=== PATIENT | female | born 1945 | race Caucasian/White ===

== ENCOUNTER → 2017-08-13 | Outpatient (CLI) | payer MEDICARE, OTHER ==
[~2017-08-13] MED LIST: CALCIUM 500 +1 EAC2 PO; CHOL10002; CIPR500 PO; DILTIAZEM; SERT50 PO; SPIR50 PO
[2017-08-13 13:44] LABS: Adenovirus F 40/41 Not Detected (NOT DETECT); Astrovirus Not Detected (NOT DETECT); Campylobacter Sp Not Detected (NOT DETECT); Cryptosporidium Not Detected (NOT DETECT); Cyclospora Cayetanensis Not Detected (NOT DETECT); E. Coli O157 Not Detected (NOT DETECT); Entamoeba Histolytica Not Detected (NOT DETECT); Enteroaggregative E. coli-EAEC Not Detected (NOT DETECT); Enteropathogenic E. coli-EPEC Not Detected (NOT DETECT); Enterotoxigenic E. coli-ETEC Not Detected (NOT DETECT); Giardia Lamblia Not Detected (NOT DETECT); Norovirus GI/GII Not Detected (NOT DETECT); Plesiomonas Shigelloides Not Detected (NOT DETECT); Rotavirus A Not Detected (NOT DETECT); Salmonella Sp Not Detected (NOT DETECT); Shiga Toxin-prod E. coli-STEC Not Detected (NOT DETECT); Shigella/Enteroin E. coli-EIEC Not Detected (NOT DETECT); Vibrio Cholerae Not Detected (NOT DETECT); Vibrio Sp Not Detected (NOT DETECT); Yersinia Enterocolitica Not Detected (NOT DETECT)
[2017-08-13 13:45] LABS: Sapovirus Not Detected (NOT DETECT)
== END | disposition home or self-care (01) ==
LOC: LAB SHORT 13:00
DX: R19.7 Diarrhea, unspecified (principal)
CPT/HCPCS: 87507

== ENCOUNTER → 2018-11-15 | Outpatient (CLI) | payer MEDICARE, OTHER | END | disposition home or self-care (01) | LOC: LAB 18:45 → LAB EV 18:45 → LAB SHORT 18:45 | DX: R30.0 Dysuria (principal) | CPT/HCPCS: 87077; 87086; 87186 ==

== ENCOUNTER → 2018-11-30 | Outpatient (CLI) | payer MEDICARE, OTHER | END | disposition home or self-care (01) | LOC: LAB SHORT 11:57 → PLD 11:57 | DX: D22.5 Melanocytic nevi of trunk (principal); D22.71 Melanocytic nevi of right lower limb, including hip | CPT/HCPCS: 88305 ==

== ENCOUNTER 2019-07-22 13:52 | Emergency (ER) | payer MEDICARE, OTHER ==
[~2019-07-22] VITALS: Ht 160 cm; Wt 90.7 kg
[2019-07-22 14:43] LABS: BASOPHILS ABSOLUTE AUTO 0.03 K/mm3 (0.00-0.23); BASOPHILS PERCENT AUTO 0 % (0-2); EOSINOPHILS ABSOLUTE AUTO 0.09 K/mm3 (0.00-0.68); EOSINOPHILS PERCENT AUTO 1 % (0-6); Hematocrit 42.8 % (33.0-51.0); Hemoglobin 14.3 g/dL (11.5-16.0); IMMATURE GRAN ABSOLUTE AUTO 0.02 K/mm3 (0.00-0.10); IMMATURE GRAN PERCENT AUTO 0 % (0-1); LYMPHOCYTES ABSOLUTE AUTO 1.52 K/mm3 (0.84-5.20); LYMPHOCYTES PERCENT AUTO 19 % (21-46); MONOCYTES ABSOLUTE AUTO 0.54 K/mm3 (0.16-1.47); MONOCYTES PERCENT AUTO 7 % (4-13); Mean Corpuscular HGB 29.7 pg (26.0-34.0); Mean Corpuscular HGB Conc 33.4 g/dL (31.5-36.5); Mean Corpuscular Volume 89 fL (80-100); NEUTROPHILS ABSOLUTE AUTO 5.97 K/mm3 (1.96-9.15); NEUTROPHILS PERCENT AUTO 73 % (41-73); Platelet Count 293 K/mm3 (150-400); RDW Coefficient Variation 12.6 % (11.7-14.2); RDW Standard Deviation 41.4 fL (35.1-46.3); Red Blood Cell Count 4.81 M/mm3 (3.80-5.20); White Blood Cell Count 8.17 K/mm3 (4.00-11.30)
[2019-07-22 15:10] LABS: Alanine Aminotransfer (ALT/SGP 73 U/L (12-78); Albumin, Blood 3.9 g/dL (3.4-5.0); Albumin/Globulin Ratio 1.2 (0.8-1.8); Alk Phos 66 U/L (50-136); Anion Gap 7 mmol/L (6-16); Aspartate Aminotrans (AST/SGOT 47 U/L (12-37); Bilirubin, Total 0.5 mg/dL (0.1-1.0); Blood Urea Nitrogen 19 mg/dL (8-24); Bun/Creatinine Ratio 28.6 (12.0-20.0); CO2, Blood 24 mmol/L (21-32); Calcium, Blood 9.3 mg/dL (8.5-10.1); Chloride, Blood 110 mmol/L (98-108); Creatinine, Blood 0.67 mg/dL (0.40-1.00); Free Thyroxine 1.12 ng/dL (0.70-1.60); Globulin, Blood 3.2 g/dL (2.2-4.0); Glomerular Filtration Rate >60 (60-); Glucose, Blood 141 mg/dL (70-99); Potassium, Blood 3.9 mmol/L (3.5-5.5); Sodium, Blood 141 mmol/L (136-145); Total Protein, Blood 7.1 g/dL (6.4-8.2)
[2019-07-22 15:16] LABS: Troponin I <0.015 ng/mL (0.000-0.040)
[2019-07-22 17:34] LABS: Source, Urine Clean Catch
[2019-07-22 17:45] LABS: Bilirubin, Urine Neg (Neg); Blood, Urine Neg (Neg); Glucose Qualitative, Urine Neg (Neg); Ketones, Urine Neg (Neg); Leukocyte Esterase, Urine 1+ (Neg); Nitrite, Urine Neg (Neg); Protein, Urine Neg (Neg); Urobilinogen, Urine NORM (Normal)
[2019-07-22 17:50] LABS: Appearance, Urine Hazy (Clear); Color, Urine Yellow (P-Yellow)
[2019-07-22 17:51] LABS: Red Blood Cells, Urine 0-2 /hpf (0-2); Squamous Epithelial Cells Rare /hpf (Few)
[2019-07-22 17:52] LABS: Bacteria Few /hpf
[2019-07-22] MEDS ORDERED: MOTION RELIEF25 MG PO (18:49)
== END 2019-07-22 19:17 | disposition home or self-care (01) ==
LOC: ER 13:52
PROVIDERS: Physician Assistant
DX: R42 Dizziness and giddiness (principal); R51 Headache; I10 Essential (primary) hypertension; F32.9 Major depressive disorder, single episode, unspecified; E03.9 Hypothyroidism, unspecified; Z79.899 Other long term (current) drug therapy
CPT/HCPCS: 36415; 70450; 71046; 80053; 81001; 84439; 84443; 84484; 85025; 87086; 93005; 93010; 96374; 96375; 99284-25; J0780; J1200; J1885; J7030

== ENCOUNTER → 2020-09-17 | Outpatient (CLI) | payer MEDICARE, OTHER ==
[~2020-09-17] MED LIST changes: +MOTION RELIEF25 MG PO
== END | disposition home or self-care (01) ==
LOC: LAB SHORT 11:17 → PLD 11:17
DX: D48.5 Neoplasm of uncertain behavior of skin (principal)
CPT/HCPCS: 88305

== ENCOUNTER → 2021-04-02 | Outpatient (CLI) | payer MEDICARE, OTHER | LOC: LAB SHORT 11:08 → LAB 11:08 | DX: D48.5 Neoplasm of uncertain behavior of skin (principal); Z88.2 Allergy status to sulfonamides; Z88.8 Allergy status to other drugs, medicaments and biological substances | CPT/HCPCS: 88305 ==

== ENCOUNTER → 2022-02-24 | Outpatient (CLI) | payer MEDICARE, OTHER ==
[2022-02-24 13:13] LABS: Source, Urine Clean Catch
[2022-02-24 15:22] LABS: Appearance, Urine Clear (Clear); Bilirubin, Urine Neg (Neg); Blood, Urine Neg (Neg); Color, Urine Yellow (P-Yellow); Glucose Qualitative, Urine Neg (Neg); Ketones, Urine Neg (Neg); Leukocyte Esterase, Urine Neg (Neg); Nitrite, Urine Neg (Neg); Protein, Urine Neg (Neg); Specific Gravity, Urine 1.015 (1.003-1.022); Urobilinogen, Urine NORM (Normal)
== END | disposition home or self-care (01) ==
LOC: LAB SHORT 13:12 → LAB 13:12
PROVIDERS: Internal Medicine
DX: R35.0 Frequency of micturition (principal)
CPT/HCPCS: 36415; 81003

== ENCOUNTER → 2022-10-12 | Outpatient (CLI) | payer MEDICARE, OTHER ==
[~2022-10-12] MED LIST changes: +LOSA25 PO; +SPIRONOLACTONE25 MG PO
== END | disposition home or self-care (01) ==
LOC: LAB 16:38 → LAB SHORT 16:38
DX: N39.0 Urinary tract infection, site not specified (principal)
CPT/HCPCS: 87086

== ENCOUNTER → 2023-10-07 | Outpatient (CLI) | payer MEDICARE, OTHER ==
[~2023-10-07] MED LIST changes: +NEBIVOLOL HCL5 MG PO; +ROSUVASTATIN CA10 MG PO; +ZOLOFT10013 PO
[2023-10-07 11:15] LABS: Source, Urine Clean Catch
[2023-10-07 13:22] LABS: Appearance, Urine Clear (Clear); Bilirubin, Urine Neg (Neg); Blood, Urine Neg (Neg); Color, Urine Yellow (P-Yellow); Glucose Qualitative, Urine Neg (Neg); Ketones, Urine Neg (Neg); Leukocyte Esterase, Urine 2+ (Neg); Nitrite, Urine Neg (Neg); Protein, Urine 1+ (Neg); Specific Gravity, Urine 1.015 (1.003-1.022); Urobilinogen, Urine NORM (Normal)
[2023-10-07 13:44] LABS: Bacteria Many /hpf; Red Blood Cells, Urine 0-2 /hpf (0-2); Squamous Epithelial Cells Few /hpf (Few); Transitional Epithelial Cells Rare /hpf (0-Rare)
== END | disposition home or self-care (01) ==
LOC: LAB 11:14 → LAB SHORT 11:14 → LAB FUT 10-05 17:00
PROVIDERS: Internal Medicine
DX: R82.90 Unspecified abnormal findings in urine (principal)
CPT/HCPCS: 81001; 87077; 87086; 87186

== ENCOUNTER 2023-10-09 09:38 | Emergency (ER) | payer MEDICARE, OTHER ==
[~2023-10-09] VITALS: Ht 167.6 cm; Wt 81.7 kg
[~2023-10-09 09:38] MED LIST changes: -NEBIVOLOL HCL5 MG PO; -ROSUVASTATIN CA10 MG PO; -ZOLOFT10013 PO
[2023-10-09] MEDS ORDERED: Ketorolac Tromethamine 30mg Vial IV ONE (10:15)
[2023-10-09] MEDS ORDERED: NS 1,000 ML IV SCH (10:15)
[2023-10-09 10:41] LABS: BASOPHILS ABSOLUTE AUTO 0.03 K/mm3 (0.00-0.23); BASOPHILS PERCENT AUTO 0 % (0-2); EOSINOPHILS ABSOLUTE AUTO 0.13 K/mm3 (0.00-0.68); EOSINOPHILS PERCENT AUTO 2 % (0-6); Hematocrit 39.1 % (33.0-51.0); Hemoglobin 13.1 g/dL (11.5-16.0); IMMATURE GRAN ABSOLUTE AUTO 0.04 K/mm3 (0.00-0.10); IMMATURE GRAN PERCENT AUTO 1 % (0-1); LYMPHOCYTES ABSOLUTE AUTO 0.79 K/mm3 (0.84-5.20); LYMPHOCYTES PERCENT AUTO 11 % (21-46); MONOCYTES ABSOLUTE AUTO 0.45 K/mm3 (0.16-1.47); MONOCYTES PERCENT AUTO 6 % (4-13); Mean Corpuscular HGB 29.2 pg (26.0-34.0); Mean Corpuscular HGB Conc 33.5 g/dL (31.5-36.5); Mean Corpuscular Volume 87 fL (80-100); Mean Platelet Volume 9.7 fL (9.1-12.4); NEUTROPHILS ABSOLUTE AUTO 5.89 K/mm3 (1.96-9.15); NEUTROPHILS PERCENT AUTO 80 % (41-73); Platelet Count 184 K/mm3 (150-400); RDW Coefficient Variation 14.1 % (11.7-14.2); RDW Standard Deviation 45.5 fL (35.1-46.3); Red Blood Cell Count 4.48 M/mm3 (3.80-5.20); White Blood Cell Count 7.33 K/mm3 (4.00-11.30)
[2023-10-09] MEDS ORDERED: ROSUVASTATIN CA10 MG PO (10:48)
[2023-10-09] MEDS ORDERED: NEBIVOLOL HCL5 MG PO (10:48)
[2023-10-09] MEDS ORDERED: ZOLOFT10013 PO (10:49)
[2023-10-09 11:00] LABS: Source, Urine Clean Catch
[2023-10-09 11:01] LABS: Albumin, Blood 3.7 g/dL (3.4-5.0); Albumin/Globulin Ratio 1.3 (0.8-1.8); Bilirubin, Total 1.6 mg/dL (0.1-1.0); Bun/Creatinine Ratio 16.3 (12.0-20.0); Calcium, Blood 8.9 mg/dL (8.5-10.1); Creatinine, Blood 0.74 mg/dL (0.40-1.00); Globulin, Blood 2.8 g/dL (2.2-4.0); Potassium, Blood 3.5 mmol/L (3.5-5.5); Total Protein, Blood 6.5 g/dL (6.4-8.2)
[2023-10-09 11:06] LABS: Appearance, Urine Clear (Clear); Bilirubin, Urine Neg (Neg); Blood, Urine 4+ (Neg); Color, Urine Yellow (P-Yellow); Glucose Qualitative, Urine Neg (Neg); Ketones, Urine Neg (Neg); Leukocyte Esterase, Urine Neg (Neg); Nitrite, Urine Neg (Neg); Protein, Urine 1+ (Neg); Urobilinogen, Urine NORM (Normal)
[2023-10-09 11:12] LABS: Bacteria Rare /hpf; Squamous Epithelial Cells Few /hpf (Few); White Blood Cells, Urine 0-2 /hpf (0-5)
[2023-10-09] MEDS ORDERED: CefTRIAXone Sodium 1,000 MG in NS 50 ML IV ONE (12:05)
[2023-10-09 12:28] VITALS: BP 157/71
== END 2023-10-09 12:35 | disposition home or self-care (01) ==
LOC: ER 09:38
PROVIDERS: Student in an Organized Health Care Education/Training Program
DX: N13.6 Pyonephrosis (principal); B96.1 Klebsiella pneumoniae [K. pneumoniae] as the cause of diseases classified elsewhere; I10 Essential (primary) hypertension; E03.9 Hypothyroidism, unspecified; Z88.2 Allergy status to sulfonamides; Z88.5 Allergy status to narcotic agent; Z79.899 Other long term (current) drug therapy
CPT/HCPCS: 74177; 80053; 81001; 85025; J0696; J1885; J7030; Q9967

== ENCOUNTER → 2023-10-19 | Outpatient (CLI) | payer MEDICARE, OTHER ==
[~2023-10-19] MED LIST changes: +NEBIVOLOL HCL5 MG PO; +ROSUVASTATIN CA10 MG PO; +ZOLOFT10013 PO
[2023-10-19 13:23] LABS: Source, Urine Clean Catch
[2023-10-19 17:23] LABS: Appearance, Urine Clear (Clear); Bilirubin, Urine Neg (Neg); Blood, Urine Neg (Neg); Color, Urine Yellow (P-Yellow); Glucose Qualitative, Urine Neg (Neg); Ketones, Urine Neg (Neg); Leukocyte Esterase, Urine 2+ (Neg); Nitrite, Urine Neg (Neg); Protein, Urine Neg (Neg); Specific Gravity, Urine 1.015 (1.003-1.022); Urobilinogen, Urine 1+ (Normal)
[2023-10-19 17:40] LABS: Red Blood Cells, Urine Not Seen /hpf (0-2)
[2023-10-19 17:41] LABS: Bacteria Few /hpf; Squamous Epithelial Cells Few /hpf (Few)
== END | disposition home or self-care (01) ==
LOC: LAB SHORT 13:20 → LAB 13:20 → LAB FUT 10-08 12:15
PROVIDERS: Internal Medicine
DX: N39.0 Urinary tract infection, site not specified (principal)
CPT/HCPCS: 81001; 87086

== ENCOUNTER → 2023-12-07 | Outpatient (CLI) | payer MEDICARE, OTHER ==
[2023-12-07 15:12] LABS: Bun/Creatinine Ratio 21.6 (12.0-20.0); Calcium, Blood 9.1 mg/dL (8.5-10.1); Creatinine, Blood 0.88 mg/dL (0.40-1.00); Potassium, Blood 3.9 mmol/L (3.5-5.5)
== END ==
LOC: LAB 14:56 → LAB SHORT 14:56
PROVIDERS: Physician Assistant Medical
DX: M25.511 Pain in right shoulder (principal); M25.512 Pain in left shoulder
CPT/HCPCS: 80048; 82550; 85651

== ENCOUNTER 2024-02-29 13:26 | Emergency (ER) | payer MEDICARE, OTHER ==
[~2024-02-29] VITALS: Ht 165.1 cm; Wt 80.7 kg
[2024-02-29 13:57] LABS: BASOPHILS ABSOLUTE AUTO 0.02 K/mm3 (0.00-0.23); BASOPHILS PERCENT AUTO 0 % (0-2); EOSINOPHILS ABSOLUTE AUTO 0.08 K/mm3 (0.00-0.68); EOSINOPHILS PERCENT AUTO 1 % (0-6); Hematocrit 39.9 % (33.0-51.0); Hemoglobin 13.1 g/dL (11.5-16.0); IMMATURE GRAN ABSOLUTE AUTO 0.04 K/mm3 (0.00-0.10); IMMATURE GRAN PERCENT AUTO 1 % (0-1); LYMPHOCYTES ABSOLUTE AUTO 0.89 K/mm3 (0.84-5.20); LYMPHOCYTES PERCENT AUTO 10 % (21-46); MONOCYTES ABSOLUTE AUTO 0.71 K/mm3 (0.16-1.47); MONOCYTES PERCENT AUTO 8 % (4-13); Mean Corpuscular HGB 29.8 pg (26.0-34.0); Mean Corpuscular HGB Conc 32.8 g/dL (31.5-36.5); Mean Corpuscular Volume 91 fL (80-100); Mean Platelet Volume 9.3 fL (9.1-12.4); NEUTROPHILS ABSOLUTE AUTO 6.84 K/mm3 (1.96-9.15); NEUTROPHILS PERCENT AUTO 80 % (41-73); Platelet Count 183 K/mm3 (150-400); RDW Coefficient Variation 14.3 % (11.7-14.2); RDW Standard Deviation 47.6 fL (35.1-46.3); White Blood Cell Count 8.58 K/mm3 (4.00-11.30)
[2024-02-29 14:16] LABS: Albumin, Blood 3.5 g/dL (3.4-5.0); Albumin/Globulin Ratio 1.1 (0.8-1.8); Bilirubin, Total 1.3 mg/dL (0.1-1.0); Bun/Creatinine Ratio 19.7 (12.0-20.0); Calcium, Blood 9.1 mg/dL (8.5-10.1); Creatinine, Blood 0.92 mg/dL (0.40-1.00); Globulin, Blood 3.2 g/dL (2.2-4.0); Potassium, Blood 3.8 mmol/L (3.5-5.5); Total Protein, Blood 6.7 g/dL (6.4-8.2)
[2024-02-29] MEDS ORDERED: EUTHYROX50 MC1 PO (17:20)
[2024-02-29] MEDS ORDERED: SPIRONOLACTONE25 MG PO (17:20)
[2024-02-29] MEDS ORDERED: LOSA50 PO (17:21)
[2024-02-29] MEDS ORDERED: Aspir 8181 MG PO (17:21)
[2024-02-29] MEDS ORDERED: OMEP20ER PO (17:21)
[2024-02-29 18:15] VITALS: BP 125/84
== END 2024-02-29 18:22 | disposition home or self-care (01) ==
LOC: ER 13:26
PROVIDERS: Emergency Medicine
DX: R07.89 Other chest pain (principal); I44.0 Atrioventricular block, first degree; I10 Essential (primary) hypertension; F32.A Depression, unspecified; E03.9 Hypothyroidism, unspecified; Z87.19 Personal history of other diseases of the digestive system; Z98.890 Other specified postprocedural states; Z88.2 Allergy status to sulfonamides; Z88.5 Allergy status to narcotic agent; Z79.890 Hormone replacement therapy; Z79.82 Long term (current) use of aspirin; Z79.899 Other long term (current) drug therapy
CPT/HCPCS: 71046; 80053; 83690; 84484; 85025; 93005; 93010; 99285-25

== ENCOUNTER → 2024-04-05 | Outpatient (CLI) | payer MEDICARE, OTHER ==
[~2024-04-05] MED LIST changes: +Aspir 8181 MG PO; +EUTHYROX50 MC1 PO; +LOSA50 PO; +OMEP20ER PO
== END ==
LOC: LAB 07:36 → LAB SHORT 07:36
DX: C01 Malignant neoplasm of base of tongue (principal); C10.9 Malignant neoplasm of oropharynx, unspecified; C77.0 Secondary and unspecified malignant neoplasm of lymph nodes of head, face and neck
CPT/HCPCS: 88305; 88342

== ENCOUNTER 2024-05-06 07:13 | Day surgery (SDC) | payer MEDICARE, OTHER ==
[~2024-05-06] VITALS: Ht 165.1 cm; Wt 82.3 kg
[2024-05-06] VITALS (8 sets, daily range): BP systolic 97–166; BP diastolic 34–110
[2024-05-06] MEDS ORDERED: Lactated Ringer's 1,000 ML IV SCH (07:45)
[2024-05-06] MEDS ORDERED: CeFAZolin Sodium 2,000 MG in NS 100 ML IV SCH (07:45)
--- NOTE | 2024-05-06 08:15 | NUR ---
Ambulatory in Day Surgery. History, Chart, Medications and Allergies reviewed before start of procedure. Lungs clear T/O to Auscultation. Patient confirms NPO status and agrees with scheduled surgery. Pre-Op teaching done. Pt verbalizes understanding. Patient States Post-Procedure ride home has been arranged.
[2024-05-06] MEDS ORDERED: propofoL 40 ML IV ONE (08:43)
--- NOTE | 2024-05-06 08:51 | NUR ---
05/06/24 0851 Rosalinda Tellez History, Chart, Medications and Allergies reviewed before start of procedure.MO PROVIDING ANESTHESIA SEE RECORDS
[2024-05-06] MEDS ORDERED: FentaNYL Citrate 50 MCG/ML 2 ML Injection ONE (09:20)
[2024-05-06] MEDS ORDERED: Acetaminophen 500 MG Tab PO ONE (09:20)
[2024-05-06] MEDS ORDERED: FentaNYL Citrate 50 MCG/ML 2 ML Injection IV ONE (09:20)
[2024-05-06] MEDS ORDERED: Ketorolac Tromethamine 30mg Vial IV ONE (09:30)
--- NOTE | 2024-05-06 11:14 | NUR ---
0910 RECEIVED PATIENT FROM ENDO ROOM WAKING AND MOANING IN PAIN TATES PAIN LEVEL11/10 DR AKINS ORDERED PAIN MED, PEG TUBE INTACT AND TAPED TO ABDOMEN ABDOMEN SOFT 0920 MINIMAL RELIEF FROM IV PAIN MED 0940 HAVING BETTER RELEIF FROM IV TORADOL, ARELIS PO FLUIDS. 0950 FAMILY AT BEDSIDE 1030 PEG TUBE TEACHING AND DC INSTRUCTS GIVEN. PALIATIVE CARE NURSE ANGELIA GAVE SOME TEACHING WELL 1100 DC HOME , TO CAR VIA W/C CARE TURNED OVER TO SON
--- NOTE | 2024-05-10 06:26 | NUR ---
ON 05/06/24 THIS RN GAVE 25 MCG OF FENTANYL AT 0915 TO THIS PT. I FAILED TO CHART IT IN EMAR. IV WAISTED 75 MCG WITH KANE LUNDBERG
== END 2024-05-06 11:00 | disposition home or self-care (01) ==
LOC: ORSCMMR 07:13 → ORD 08:30 → ORSCMMR 11:00
PROVIDERS: Surgery
PROC: 0DH64UZ Insertion of Feeding Device into Stomach, Percutaneous Endoscopic Approach (ICD-10-PCS; principal; 2024-05-06 08:30)
DX: C10.9 Malignant neoplasm of oropharynx, unspecified (principal); I10 Essential (primary) hypertension; G47.33 Obstructive sleep apnea (adult) (pediatric); E11.9 Type 2 diabetes mellitus without complications; K21.9 Gastro-esophageal reflux disease without esophagitis; E07.9 Disorder of thyroid, unspecified; Z79.82 Long term (current) use of aspirin; Z79.899 Other long term (current) drug therapy
CPT/HCPCS: A9270; C1769; J0690; J1885; J2704; J3010; J7120

== ENCOUNTER 2024-06-06 12:46 | Observation (INO) | payer MEDICARE, OTHER ==
[~2024-06-06] VITALS: Ht 165.1 cm; Wt 75.4 kg
[2024-06-06] MEDS ORDERED: NS 1,000 ML IV SCH ×3 (13:00→20:00)
[2024-06-06 13:43] LABS: BASOPHILS ABSOLUTE AUTO 0.02 K/mm3 (0.00-0.23); BASOPHILS PERCENT AUTO 0 % (0-2); EOSINOPHILS PERCENT AUTO 1 % (0-6); Hematocrit 38.9 % (33.0-51.0); IMMATURE GRAN ABSOLUTE AUTO 0.06 K/mm3 (0.00-0.10); IMMATURE GRAN PERCENT AUTO 1 % (0-1); LYMPHOCYTES ABSOLUTE AUTO 0.41 K/mm3 (0.84-5.20); LYMPHOCYTES PERCENT AUTO 4 % (21-46); MONOCYTES ABSOLUTE AUTO 0.91 K/mm3 (0.16-1.47); MONOCYTES PERCENT AUTO 8 % (4-13); Mean Corpuscular HGB 29.4 pg (26.0-34.0); Mean Corpuscular HGB Conc 33.4 g/dL (31.5-36.5); Mean Corpuscular Volume 88 fL (80-100); NEUTROPHILS ABSOLUTE AUTO 10.29 K/mm3 (1.96-9.15); NEUTROPHILS PERCENT AUTO 87 % (41-73); Platelet Count 238 K/mm3 (150-400); RDW Coefficient Variation 13.5 % (11.7-14.2); RDW Standard Deviation 43.6 fL (35.1-46.3); Red Blood Cell Count 4.42 M/mm3 (3.80-5.20); White Blood Cell Count 11.79 K/mm3 (4.00-11.30)
[2024-06-06 14:05] LABS: Albumin, Blood 3.7 g/dL (3.4-5.0); Albumin/Globulin Ratio 1.1 (0.8-1.8); Bun/Creatinine Ratio 28.4 (12.0-20.0); Calcium, Blood 9.2 mg/dL (8.5-10.1); Creatinine, Blood 1.41 mg/dL (0.40-1.00); Globulin, Blood 3.4 g/dL (2.2-4.0); Potassium, Blood 4.6 mmol/L (3.5-5.5); Total Protein, Blood 7.1 g/dL (6.4-8.2)
[2024-06-06 17:35] LABS: Source, Urine Clean Catch
[2024-06-06 17:52] LABS: Appearance, Urine Cloudy (Clear); Bilirubin, Urine Neg (Neg); Blood, Urine 3+ (Neg); Color, Urine Yellow (P-Yellow); Glucose Qualitative, Urine Neg (Neg); Ketones, Urine Neg (Neg); Leukocyte Esterase, Urine 3+ (Neg); Nitrite, Urine Pos (Neg); Protein, Urine 2+ (Neg); Urobilinogen, Urine NORM (Normal)
[2024-06-06 17:59] LABS: Bacteria Many /hpf; Mucus Light (0-Heavy); Squamous Epithelial Cells Few /hpf (Few); Transitional Epithelial Cells Few /hpf (0-Rare); White Blood Cells, Urine 50-100 /hpf (0-5)
[2024-06-06] MEDS ORDERED: Cefepime HCl 1,000 MG in NS 100 ML IV ONE (18:15)
[2024-06-06 18:31] LABS: Osmolality, Urine 307 mos/kg (15-1400)
[2024-06-06 18:41] LABS: Sodium, Urine, Random 19 mmol/L (20-110)
[2024-06-06] MEDS ORDERED: FLU VACC TS2024-25(6MOS UP)/PF 45 MCG/0.5 ML SYRINGE IM SCH (19:50)
[2024-06-06] MEDS ORDERED: Ondansetron HCl 2 MG / ML 2ML Vial IV PRN (19:55)
[2024-06-06] MEDS ORDERED: Lactobacil 2-S.Thermo-Bifido 1 1 Cap PO SCH (21:00)
[2024-06-06 21:13] LABS: Bun/Creatinine Ratio 30.6 (12.0-20.0); Calcium, Blood 9.2 mg/dL (8.5-10.1); Creatinine, Blood 1.08 mg/dL (0.40-1.00); Potassium, Blood 4.5 mmol/L (3.5-5.5)
[2024-06-06 21:27] VITALS: BP 128/74
[2024-06-06] MEDS ORDERED: NS 250 ML IV PRN (22:25)
[2024-06-06] MEDS ORDERED: CefTRIAXone Sodium 1,000 MG in NS 100 ML IV SCH (23:00)
[2024-06-07 02:52] VITALS: BP 123/59
[2024-06-07 04:36] LABS: BASOPHILS ABSOLUTE AUTO 0.02 K/mm3 (0.00-0.23); BASOPHILS PERCENT AUTO 0 % (0-2); EOSINOPHILS ABSOLUTE AUTO 0.11 K/mm3 (0.00-0.68); EOSINOPHILS PERCENT AUTO 1 % (0-6); Hematocrit 35.6 % (33.0-51.0); Hemoglobin 12.2 g/dL (11.5-16.0); IMMATURE GRAN ABSOLUTE AUTO 0.04 K/mm3 (0.00-0.10); IMMATURE GRAN PERCENT AUTO 0 % (0-1); LYMPHOCYTES ABSOLUTE AUTO 0.41 K/mm3 (0.84-5.20); LYMPHOCYTES PERCENT AUTO 4 % (21-46); MONOCYTES ABSOLUTE AUTO 0.99 K/mm3 (0.16-1.47); MONOCYTES PERCENT AUTO 10 % (4-13); Mean Corpuscular HGB Conc 34.3 g/dL (31.5-36.5); Mean Corpuscular Volume 88 fL (80-100); Mean Platelet Volume 10.2 fL (9.1-12.4); NEUTROPHILS ABSOLUTE AUTO 8.35 K/mm3 (1.96-9.15); NEUTROPHILS PERCENT AUTO 84 % (41-73); Platelet Count 175 K/mm3 (150-400); RDW Coefficient Variation 13.3 % (11.7-14.2); RDW Standard Deviation 42.6 fL (35.1-46.3); Red Blood Cell Count 4.06 M/mm3 (3.80-5.20); White Blood Cell Count 9.92 K/mm3 (4.00-11.30)
[2024-06-07 04:57] LABS: Albumin, Blood 3.5 g/dL (3.4-5.0); Albumin/Globulin Ratio 1.2 (0.8-1.8); Bilirubin, Total 0.8 mg/dL (0.1-1.0); Bun/Creatinine Ratio 29.7 (12.0-20.0); Calcium, Blood 9.2 mg/dL (8.5-10.1); Creatinine, Blood 0.94 mg/dL (0.40-1.00); Magnesium, Blood 2.7 mg/dL (1.6-2.4); Total Protein, Blood 6.5 g/dL (6.4-8.2)
[2024-06-07] MEDS ORDERED: Levothyroxine Sodium 0.05 MG Tab PO SCH (06:00)
[2024-06-07] MEDS ORDERED: Omeprazole 20 MG CapCR PO SCH (06:00)
--- NOTE | 2024-06-07 06:37 | NUR ---
REC'D PT FROM ER, ORIENTED TO ROOM AND CALL LIGHT SYSTEM. AAOX4, ABLE TO MAKE NEEDS KNOWN AND AMBULATES INDEPENDENTLY. ENCOURAGED TO USE CALL LIGHT IF WEAK OR DIZZY BEFORE GETTTING OOB. TELE IN PLACE, SR @86. CHRONIC DIAHRREA AND STESS INCONTINENCE. CA 2 BASE OF TONGUE, BEING TREATED WITH RADIATION. PT IS ABLE TO SWALLOW PILLS WITH WATER AND TAKE A FEW BITES OF FOOD. DAUGHTER BROUGT OATMEAL AND ISORSOURCE 1.5 ELVIRA MEAL REPLACEMENT WHICH IS GRAVITY FEED INTO G TUBE. GTUBE IS IS EPIGASTRIC REGION. PT TOLERATED WELL. DAUGHTER WILL BRING MORE FROM HOME IF NEEDED, PT IS SENSITIVE TO OTHER BRANDS AND THIS IS WORKING WELL.
[2024-06-07 07:27] VITALS: BP 103/56
[2024-06-07] MEDS ORDERED: Loperamide HCl 2 MG Cap PO PRN (08:40)
[2024-06-07] MEDS ORDERED: Sertraline HCl 100 MG Tab PO SCH (09:00)
[2024-06-07] MEDS ORDERED: Aspirin 81 MG Chew PO SCH (09:00)
[2024-06-07] MEDS ORDERED: Heparin Sodium 5000 Units/ML 1ML MDV SC SCH (09:00)
[2024-06-07] MEDS ORDERED: LOPE2C PO (10:53)
[2024-06-07] MEDS ORDERED: VISBIOME 112.51 EACH PO (10:54)
[2024-06-07] MEDS ORDERED: CIPR500 PO (10:55)
--- NOTE | 2024-06-07 11:26 | NUR ---
DISCHARGE NOTE PT DISCHARGED HOME AT 1110. PT AND PT'S DAUGHTER PROVIDED W/ VERBAL AND WRITTEN INSTRUCTIONS AND REPORTED UNDERSTANDING. PT A&OX4, VSS, AMB W/ SBA, TOLERATING PO, VOIDING, AND DENIED PAIN AND OR DIZZINESS. BELONGINGS WERE RETURNED AND PT ESCOURTED OUT VIA W/C BY FRANCESCO ARELLANO.
== END 2024-06-07 11:15 | disposition home or self-care (01) ==
LOC: ER 12:46 → MEDS 12:47 → ERHOLD 12:47 → MEDS 21:27 → ENPENDDIS 06-07 11:15
PROVIDERS: Physician Assistant; Student in an Organized Health Care Education/Training Program; ADMIT Student in an Organized Health Care Education/Training Program
DX: I95.9 Hypotension, unspecified (principal); E86.0 Dehydration; R82.90 Unspecified abnormal findings in urine; E03.9 Hypothyroidism, unspecified; I12.9 Hypertensive chronic kidney disease with stage 1 through stage 4 chronic kidney disease, or unspecified chronic kidney disease; N18.9 Chronic kidney disease, unspecified; F32.A Depression, unspecified; Z72.0 Tobacco use; Z79.82 Long term (current) use of aspirin; Z79.899 Other long term (current) drug therapy; Z88.2 Allergy status to sulfonamides; Z88.8 Allergy status to other drugs, medicaments and biological substances
CPT/HCPCS: 36415; 80048; 80053; 81001; 82570; 83605; 83735; 83880; 83935; 84300; 84484; 85025; 87040; 93005; 93010; 96361; 96365; 96366; 96367; 96372; 99285-25; A9270; G0378; J0692; J0696; J1644; J7030

== ENCOUNTER → 2025-02-13 | Outpatient (CLI) | payer MEDICARE, OTHER ==
[~2025-02-13] MED LIST changes: +CEPH500 PO; +LOPE2C PO; +MONDOXYNE NL100 MG PO; +SPIR25 PO; +VISBIOME 112.51 EACH PO
== END ==
LOC: LAB SHORT 12:00 → LAB 12:00
DX: L02.01 Cutaneous abscess of face (principal)
CPT/HCPCS: 87070; 87075; 87077; 87147; 87186; 87205

== ENCOUNTER 2025-02-14 15:44 | Inpatient (IN) | payer MEDICARE, OTHER ==
[~2025-02-14] VITALS: Ht 165.1 cm; Wt 64.8 kg
[~2025-02-14 15:44] MED LIST changes: -CEPH500 PO; -MONDOXYNE NL100 MG PO; -SPIR25 PO
[2025-02-14 16:57] LABS: BASOPHILS ABSOLUTE AUTO 0.01 K/mm3 (0.00-0.23); BASOPHILS PERCENT AUTO 0 % (0-2); EOSINOPHILS ABSOLUTE AUTO 0.08 K/mm3 (0.00-0.68); EOSINOPHILS PERCENT AUTO 1 % (0-6); Hematocrit 38.0 % (33.0-51.0); Hemoglobin 13.0 g/dL (11.5-16.0); IMMATURE GRAN ABSOLUTE AUTO 0.02 K/mm3 (0.00-0.10); IMMATURE GRAN PERCENT AUTO 0 % (0-1); LYMPHOCYTES ABSOLUTE AUTO 0.47 K/mm3 (0.84-5.20); LYMPHOCYTES PERCENT AUTO 7 % (21-46); MONOCYTES ABSOLUTE AUTO 0.52 K/mm3 (0.16-1.47); MONOCYTES PERCENT AUTO 7 % (4-13); Mean Corpuscular HGB Conc 34.2 g/dL (31.5-36.5); Mean Corpuscular Volume 90 fL (80-100); NEUTROPHILS ABSOLUTE AUTO 5.92 K/mm3 (1.96-9.15); NEUTROPHILS PERCENT AUTO 84 % (41-73); NRBC ABSOLUTE 0.00 K/mm3 (0.00-0.02); NRBC Auto 0.0 /100 WBC (0.0-0.2); Platelet Count 164 K/mm3 (150-400); RDW Coefficient Variation 13.1 % (11.7-14.2); RDW Standard Deviation 43.1 fL (35.1-46.3)
[2025-02-14 17:47] LABS: Alanine Aminotransfer (ALT/SGP 33.0 U/L (12-78); Albumin, Blood 3.7 g/dL (3.4-5.0); Albumin/Globulin Ratio 1.2 (0.8-1.8); Anion Gap 8.0 mmol/L (3-11); Aspartate Aminotrans (AST/SGOT 29.0 U/L (12-37); Bilirubin, Total 1.9 mg/dL (0.1-1.0); Blood Urea Nitrogen 16.0 mg/dL (8-24); CO2, Blood 26.0 mmol/L (21-32); Calcium, Blood 9.1 mg/dL (8.5-10.1); Chloride, Blood 108.0 mmol/L (98-108); Creatinine, Blood 0.81 mg/dL (0.40-1.00); Globulin, Blood 3.2 g/dL (2.2-4.0); Glucose, Blood 88.0 mg/dL (70-99); Potassium, Blood 3.3 mmol/L (3.5-5.5); Sodium, Blood 139.0 mmol/L (136-145); Total Protein, Blood 6.9 g/dL (6.4-8.2)
[2025-02-14] MEDS ORDERED: Vancomycin (Pharmacy Consult) IV PRN (21:30)
[2025-02-14] MEDS ORDERED: SPIR25 PO (23:31)
[2025-02-14 23:41] VITALS: BP 182/96
[2025-02-15] MEDS ORDERED: Vancomycin (Pharmacy Consult) IV PRN ×2 (00:05→00:10)
[2025-02-15] MEDS ORDERED: Ondansetron HCl 2 MG / ML 2ML Vial IV PRN (00:10)
[2025-02-15] MEDS ORDERED: NS 1,000 ML IV SCH (00:10)
[2025-02-15] MEDS ORDERED: FentaNYL Citrate 50 MCG/ML 2 ML Injection IV PRN (00:10)
[2025-02-15] MEDS ORDERED: Ampicillin Sod/Sulbactam Sod 3 GM in NS 100 ML IV SCH (00:30)
[2025-02-15 03:48] VITALS: BP 104/55
--- NOTE | 2025-02-15 04:18 | NUR ---
SHIFT SUMMARY: PT AOX4 IND IN THE ROOM. CALLS APPROPRIATELY AND ABLE TO MAKE NEEDS KNOWN. WOUND HAVING SOME DRAINAGE. TOLERATING MEDICATIONS WELL. PLEASANT AND COOPERATIVE IN CARE. NO ACUTE OVERNIGHT EVENTS. PT IN BED RESTING, BED IN LOWEST POSITION, CALL LIGHT IN REACH. CONTINUING CARE.
[2025-02-15 07:42] LABS: Magnesium, Blood 2.2 mg/dL (1.6-2.4)
[2025-02-15 07:45] VITALS: BP 108/61
[2025-02-15] MEDS ORDERED: Lactobacil 2-S.Thermo-Bifido 1 1 Cap PO SCH (09:00)
[2025-02-15] MEDS ORDERED: Enoxaparin 40 MG/0.4 ML SYR SC SCH (09:00)
[2025-02-15] MEDS ORDERED: MONDOXYNE NL100 MG PO (11:21)
[2025-02-15] MEDS ORDERED: CEPH500 PO (11:21)
[2025-02-15 16:16] VITALS: BP 117/67
--- NOTE | 2025-02-15 17:02 | NUR ---
DR BOX CALLED THIS RBN AT 1700, HE DID NOT RECEIVE MESSAGE FROM HIS PA FROM CONSULT CALLED IN THIS AM BY THIS RN. HE ADVISED WARM COMPRESS TO AREA. HE AGREES WITH THE ABX TX. HE STATES THAT THE CULTURE OBTAINED FROM HER PCP CAME BACK POSITIVE FOR MRSA. WILL SET UP PT IN CONTACT ISOLATION. HE WILL BE BY TO [facility] IN AM AFTER HIS MEETING AT APPROX 0730-
--- NOTE | 2025-02-15 17:54 | NUR ---
SUMMARY- PT A/O X4, INDEPENDANT IN HER ROOM AND TO THE BATHROOM. PT WITH PERIORBITAL ABCESS, SWELLING AND REDNESS ABOUT EYE, SWELLING TO L JAIN WITH OOZE OF SEROUS. VERY PAINFUL TO TOUCH, UNABLE TO PRSS OUT ANY EXUDATE RELATED TO PAIN. DR BOX PLANS TO SEE PT IN AM AFTER HIS M EETING. SEE PREVIOUS NOTE. STARTED WARM COMPRESSES TO AREA. SWELLING HAS MARKEDLY COME DOWN FROM THIS AM. PT TOLERATING FOOD AND FLUIDS. VOIDING IN BATHROOM. DECLINES ANYTHING STRONGER FOR PAIN CONTROL. TYLENOL CONTROLLS PAIN. WILL REPORT TO NOC RN
[2025-02-15 19:59] VITALS: BP 122/71
[2025-02-16 05:25] VITALS: BP 129/67
--- NOTE | 2025-02-16 05:33 | NUR ---
SHIFT SUMMARY PT ALERT ORIENTED X 4 ABLE TO VERBALIZE NEEDS GETS UP IN ROOM AD ALLEY. HER LEFT PERIORBITAL AREA REMAINS RED AND SWOLLEN BUT THE SWELLING IS GETTING BETTER. REMAINS ON VANCO QDAY AND UNASYN Q6HR FOR CELLULITIS LT PERIORBITAL AREA AND LT FACIAL WITH A ABCESS TO THE LT EPISCOPALIAN. DR. BOX ENT WILL BE HERE TODAY TO DO A CONSULT. REMAINS WITH WARM COMPRESSES TO EYE WHEN AWAKE. LABS WERE DONE THIS AM. VANCO TROUGH IS SCHEDULED TONITE AT 1999. RESTING IN BED AT THIS TIME WITH CALL LIGHT IN REACH
[2025-02-16 05:53] LABS: BASOPHILS ABSOLUTE AUTO 0.02 K/mm3 (0.00-0.23); BASOPHILS PERCENT AUTO 0 % (0-2); EOSINOPHILS ABSOLUTE AUTO 0.12 K/mm3 (0.00-0.68); EOSINOPHILS PERCENT AUTO 2 % (0-6); Hematocrit 35.4 % (33.0-51.0); Hemoglobin 11.8 g/dL (11.5-16.0); IMMATURE GRAN ABSOLUTE AUTO 0.02 K/mm3 (0.00-0.10); IMMATURE GRAN PERCENT AUTO 0 % (0-1); LYMPHOCYTES ABSOLUTE AUTO 0.42 K/mm3 (0.84-5.20); LYMPHOCYTES PERCENT AUTO 8 % (21-46); MONOCYTES ABSOLUTE AUTO 0.45 K/mm3 (0.16-1.47); MONOCYTES PERCENT AUTO 9 % (4-13); Mean Corpuscular HGB Conc 33.3 g/dL (31.5-36.5); Mean Corpuscular Volume 91 fL (80-100); NEUTROPHILS ABSOLUTE AUTO 4.22 K/mm3 (1.96-9.15); NEUTROPHILS PERCENT AUTO 80 % (41-73); NRBC ABSOLUTE 0.00 K/mm3 (0.00-0.02); NRBC Auto 0.0 /100 WBC (0.0-0.2); Platelet Count 145 K/mm3 (150-400); RDW Coefficient Variation 13.2 % (11.7-14.2); RDW Standard Deviation 43.7 fL (35.1-46.3)
[2025-02-16 06:26] LABS: Alanine Aminotransfer (ALT/SGP 28.0 U/L (12-78); Albumin, Blood 3.0 g/dL (3.4-5.0); Albumin/Globulin Ratio 1.0 (0.8-1.8); Anion Gap 9.0 mmol/L (3-11); Aspartate Aminotrans (AST/SGOT 23.0 U/L (12-37); Bilirubin, Total 1.4 mg/dL (0.1-1.0); Blood Urea Nitrogen 16.0 mg/dL (8-24); CO2, Blood 24.0 mmol/L (21-32); Calcium, Blood 8.5 mg/dL (8.5-10.1); Chloride, Blood 111.0 mmol/L (98-108); Creatinine, Blood 0.89 mg/dL (0.40-1.00); Globulin, Blood 3.0 g/dL (2.2-4.0); Glucose, Blood 95.0 mg/dL (70-99); Potassium, Blood 4.0 mmol/L (3.5-5.5); Sodium, Blood 140.0 mmol/L (136-145); Total Protein, Blood 6.0 g/dL (6.4-8.2)
[2025-02-16 07:01] VITALS: BP 126/66
[2025-02-16] MEDS ORDERED: Enoxaparin 40 MG/0.4 ML SYR SC SCH (11:00)
--- NOTE | 2025-02-16 13:39 | NUR ---
LATE ENTRY FOR 02/16 730- DR BOX IN TO EVAL PT FOR ENT CONSULT RELATED TO L FACIAL CELLULITIS/ABECESS. HE STATES HE AGREES TO CONT IV ABX AND BE DC'D WITH PO ABX ACCORDING TO SUCEPTIBILITY CONT WITH WARM COMPRESS.
[2025-02-16 15:23] VITALS: BP 123/56
--- NOTE | 2025-02-16 18:52 | NUR ---
SUMMARY- PT A/O X4, INDEPENDANT IN THE ROOM. TOLERATING FOOD AND FLUID. L FACIAL CELLULITIS AND SWELLING HAVE ALMOST RESOLVED. MILD DISCOLORATION AND SCANT SWELLING. PLAN FOR ANOTHER DAY OR 2 OF IV ABX AND DC HOME WITH ORAL ABX. PT HAS HAD MIN TO NO PAIN AND HAS DECLINED PAIN MED TODAY. WILL REPORT TO NOC RN
[2025-02-16 20:04] VITALS: BP 138/71
[2025-02-16 20:34] LABS: Vancomycin, Trough 12.4 ug/mL (5.0-10.0)
--- NOTE | 2025-02-17 05:30 | NUR ---
SHIFT SUMMARY PT ALERT ORIENTED X 4 ABLE TO VERBALIZE NEEDS GETS UP AD ALLEY IN HER ROOM. HER LT FACIAL CELLULITIS AND LT CONFUCIANIST IS LOOKING SO MUCH BETTER WITH A BIG DECREASE IN REDNESS AND SWELLING. NO C/O PAIN TO AREA CONTINUES ON VANCO QDAY ORDERED FOR MRSA TO HER EYE. SHES DUE TO DC TO HOME TODAY WITH PO ANTIBIOTICS. HER HR REMAINS IN THE HIGH 40'S TO LOW 50'S. DR. BOX CAME AND SEEN HER YESTERDAY AND SAID NO TX NEEDED TO JUST CONTINUE HOT COMPRESSES AND SHE CAN GO HOME TODAY ON PO ANTIBIOTIC. REMAINS ON CONTACT ISOLATION R/T MRSA. RESTING IN BED WITH CALL LIGHT IN REACH
[2025-02-17 05:58] VITALS: BP 133/72
[2025-02-17 07:55] VITALS: BP 126/64
== END 2025-02-17 11:12 | disposition home or self-care (01) | DRG 92 ==
LOC: ER 15:44 → ERHOLD 15:45 → MEDS 15:45
PROVIDERS: Physician Assistant; ADMIT Internal Medicine
PROC: 009U3ZX Drainage of Spinal Canal, Percutaneous Approach, Diagnostic (ICD-10-PCS; principal; 2025-02-16)
DX: R20.0 Anesthesia of skin (principal); E87.1 Hypo-osmolality and hyponatremia; R53.1 Weakness; S90.411A Abrasion, right great toe, initial encounter; X58.XXXA Exposure to other specified factors, initial encounter; F17.210 Nicotine dependence, cigarettes, uncomplicated; E87.6 Hypokalemia; G97.1 Other reaction to spinal and lumbar puncture; Y84.4 Aspiration of fluid as the cause of abnormal reaction of the patient, or of later complication, without mention of misadventure at the time of the procedure; Z88.8 Allergy status to other drugs, medicaments and biological substances
CPT/HCPCS: 36415; 70487; 80053; 80202; 83735; 83880; 84439; 85025; 96365-59; 96366; 99284-25; A9270; G0378; J0295; J3373; J3480; J7030; J7050; Q9967